=== PATIENT | male | born 1960 | race Caucasian/White ===

== ENCOUNTER 2021-08-16 12:29 | Observation (INO) | payer MEDICARE, MEDICAID, SELFPAY ==
--- NOTE | ~2021-08-16 | CT_ITS ---
EXAMINATION: CT abdomen pelvis wo con DATE: 08/16/2021 15:21 INDICATION: Abdominal pain TECHNIQUE: Computed tomography (CT) of the abdomen and pelvis was performed without intravenous contr ast. The dose-length product (DLP) was 739.09 mGy-cm. Automated exposure control and iterative recons truction technique were employed. COMPARISON: 12/14/2018 FINDINGS: Minimal dependent atelectasis is present in the lung bases. The heart size is normal. Calci fied pulmonary nodules are consistent with old granulomatous disease. Within the limitations of nonco ntrast examination, the liver, pancreas, gallbladder, and adrenal glands are normal. There is a 6 mm nonobstructing stone of the left kidney. There is a staghorn calculus of the right renal pelvis. No s tones are identified in the ureters or bladder. There is no hydronephrosis or hydroureter. There is f luid distention of the stomach. The duodenum is distended to the midportion of the third segment. No pathologically enlarged abdominal or pelvic lymph nodes are identified. There is calcified atheroscle rosis of the aorta and many of the other arteries. The appendix is normal. There is no free intraperi toneal gas. There is moderate lumbar spondylosis. IMPRESSION: 1. Staghorn calculus of the right renal pelvis and nonobstructing stone of the left kidney. 2. Fluid distention of the stomach and duodenum throughout its mid third portion of unclear etiology. Reviewed, dictated and finalized at location F. ICER IMPRESSION: 1. Staghorn calculus of the right renal pelvis and nonobstructing stone of the left kidney. 2. Fluid distention of the stomach and duodenum throughout its mid third portio n of unclear etiology.
--- NOTE | ~2021-08-16 | XR_ITS ---
EXAMINATION: XR abdomen NG/feed tube insert EXAM DATE: 08/16/2021 16:17 INDICATION: NG placement . Dilated bowel loops on CT. TECHNIQUE: Frontal projection(s) of the abdomen for interpretation. Correlation is made to CT earlier same day. FINDINGS: Feeding tube tip overlies the stomach, side-port is at the gastroesophageal junction. This could be safely advanced 5 cm, which I discussed at the time the image was taken, relayed to emergenc y room staff through technologist who had me review image prior to completing. Stomach is distended w ith gas and fluid. Some mildly dilated air-filled loops of bowel in the upper abdomen. There is no or ganomegaly. IMPRESSION: Feeding tube tip in stomach but could be safely advanced 5 cm. Reviewed, dictated and finalized at location A. GRAPH OPERATOR
[2021-08-16 12:35] VITALS: BP 120/82; PULSE 105; RESP 20; TEMP 36.2; O2SAT 98
--- NOTE | 2021-08-16 12:57 | ED.NAVMDI ---
HPI - Nausea/Vomiting/Diarrhea General Chief complaint: Nausea/Vomiting/Diarrhea Stated complaint: emesis Time Seen by Provider: 08/16/21 12:55 Source: patient Mode of arrival: EMS Limitations: no limitations History of Present Illness HPI Narrative: Patient is a 60-year-old male complaining of nausea and vomiting, nonbilious nonbloody started last night. Patient states that he is at approximately 11 episodes of vomiting since last night. Patient denies any chest pain, shortness of breath, abdominal pain, diarrhea, fever or chills. Related Data Allergies Allergy/AdvReac Type Severity Reaction Status Date / Time No Known Allergies Allergy Mild Verified 12/17/20 11:49 Review of Systems Review of Systems: All systems reviewed & are unremarkable except as noted in HPI and below Constitutional: Constitutional: Denies body ache(s), Denies chills, Denies excessive sweating, Denies fatigue, Denies fever(s), Denies headache(s), Denies lethargy, Denies malaise, Denies weakness and Denies weight loss Eyes: Eyes: Denies blurry vision, Denies change in vision and Denies loss of vision ENT: Denies dizziness, Denies ear discharge, Denies headache(s), Denies lip swelling, Denies epistaxis, Denies nasal congestion, Denies neck pain, Denies throat swelling and Denies tongue swelling Cardiovascular: Cardiovascular: Denies chest pain, Denies chest pain at rest, Denies chest pain with activity, Denies diaphoresis, Denies rapid heart rate, Denies edema, Denies irregular heart rhythm, Denies lightheadedness, Denies palpitations, Denies dyspnea and Denies dyspnea on exertion Respiratory: Respiratory: Denies chest congestion, Denies cough, Denies hemoptysis, Denies dyspnea and Denies dyspnea on exertion Gastrointestinal: Gastrointestinal: Denies abdominal pain, Denies melena, Denies hematochezia, Denies diarrhea and Denies hematemesis Musculoskeletal: Musculoskeletal: Denies abnormal gait, Denies deformity, Denies joint swelling, Denies limited range of motion, Denies neck pain and Denies numbness Neurologic: Denies Abnormal speech present, Denies abnormal gait, Denies confusion, Denies dizziness, Denies headache(s), Denies focal weakness, Denies loss of vision, Denies numbness, Denies Other visual disturbances, Denies Sensory deficit (Neuro) and Denies weakness Psychiatric: Psychiatric: Denies confusion, Denies depression, Denies auditory hallucinations, Denies homicidal ideation and Denies suicidal ideation Endocrine: Endocrine: Denies cold intolerance, Denies excessive sweating, Denies fatigue, Denies heat intolerance and Denies palpitations Hematologic/Lymphatic: Hematologic/Lymphatic: Denies easy bleeding and Denies easy bruising Allergic/Immunologic: Allergic/Immunologic: Denies lip swelling, Denies throat swelling and Denies tongue swelling PMFSH Comments Past medical history: Chronic kidney disease, COPD, paraplegia, spinal stenosis Family history: Unknown Social history: Non-smoker no EtOH use lives in a fci Exam Const: General: no acute distress and alert Nutritional Appearance: thin Orientation/consciousness: oriented to person, oriented to place and No confusion Limitations: no limitations Other: Frail, not oriented to time HENMT: Head: normal to inspection, normocephalic and atraumatic Ears: hearing grossly normal bilaterally, TM normal on the right and TM normal on the left General nose exam: Normal external nose present, Normal nares present and No nasal discharge present Face and sinus: normal facial exam Mouth: Yes Normal oral and palatal mucosa present, Yes lip normal, Yes tongue normal and Yes oropharynx normal Throat: posterior oropharynx normal, tonsils normal and uvula midline Eyes: General: appearance normal, both eyes and all related structures Pupils: Equal, round and reactive pupils present EOM: EOMs intact bilaterally Neck: Neck: normal visual inspection, full ROM, no lymphadenopathy and no meningeal signs Ches
[2021-08-16] MEDS: PROMETHAZINE HCL 25 MG/ML AMPUL 12.5 MG IV PUSH (13:08)
[2021-08-16] MEDS: SODIUM CHLORIDE 0.9% IV 1,000 ML 999 ML IV CONT (13:08)
[2021-08-16 13:15] LABS: Basophils Percent Auto 0.2 % (0.2-1.2); Eosinophils Percent Auto 0.1 % (0-4.4); Hematocrit 48.9 % (42.0-52.0); Hemoglobin 14.7 g/dL (14.0-18.0); Immature Granulocyte Absolute 0.04 K/mm3 (0.00-0.031); Immature Granulocyte Percent A 0.4 % (0-0.5); Lymphocytes Absolute Auto 1.25 K/mm3 (0.9-3.2); Lymphocytes Percent Auto 11.4 % (18.3-44.2); Mean Corpuscular HGB Conc 30.1 g/dl (32-36); Mean Corpuscular Volume 96.4 fl (80-100); Monocytes Absolute Auto 0.7 K/mm3 (0.1-0.6); Monocytes Percent Auto 5.9 % (2.6-8.5); Platelet Count Result 315 k/mm3 (150-375); Red Blood Count 5.07 M/mm3 (4.6-6.20)
[2021-08-16 13:33] LABS: Alanine Aminotransferase 15 U/L (4-50); Albumin Level 4.7 g/dL (3.5-5.1); Alkaline Phosphatase 106 U/L (38-126); Anion Gap 10 mmol/L (8-16); Aspartate Amino Transferase 27 U/L (17-59); Bilirubin,Total 0.4 mg/dL (0.2-1.3); Blood Urea Nitrogen 22 mg/dL (9-20); Calcium 10.1 mg/dL (8.4-10.2); Carbon Dioxide 37 mmol/L (22-30); Chloride 97 mmol/L (98-107); Estimated CRCL calculation 69 ml/min; Estimated Glomerular Filt Rate > 60; Glucose 139 mg/dL (65-110); Lipase 54 U/L (23-300); Potassium 3.9 mmol/L (3.4-5.0); Sodium 144 mmol/L (137-145)
[2021-08-16] MEDS: ONDANSETRON INJ 4 MG/2 ML VIAL IV PUSH ×2 (14:19→15:00)
[2021-08-16] MEDS: PANTOPRAZOLE SODIUM IV 40 MG VIAL IV PUSH (15:01)
[2021-08-16 15:04] LABS: Add Urine Microscopic? YES; Appearance Urine Turbid (Clear); Bacteria Urine 1+ /hpf; Bilirubin Urine Negative (Negative); Blood Urine 3+ (Negative); Color Urine Yellow (Yellow); Glucose Urine UA Negative (Negative); Ketones Urine Trace mg/dL (Negative); Leukocyte Esterase Ur 2+ LEU/UL (Negative); Mucus Urine Heavy /lpf; Nitrate Urine Negative (Negative); Protein Urine 3+ mg/dL (Negative); RBC Urine >75 /hpf (0-2); Specific Grav Ur 1.022 (1.001-1.035); Urobilinogen Urine Negative mg/dL (<2.0); WBC Clumps Urine Present /HPF; WBC Urine >75 /hpf
[2021-08-16] MEDS: LORazepam INJ (*CRX) 2 MG/ML VIAL 1 MG IV PUSH (15:51)
[2021-08-16 16:28] VITALS: BP 104/71; PULSE 110; RESP 20; O2SAT 97
--- NOTE | 2021-08-16 16:38 | PC.NURSE ---
NG tube was initially at 60cm. advanced to 65cm per abdomen Xray report.
[2021-08-16] MEDS: LACTATED RINGERS 1,000 ML 125 ML IV CONT (17:25)
--- NOTE | 2021-08-16 17:30 | PM.IMHP ---
H&P: HPI History of Present Illness Date/Time: 08/16/21 17:30 Chief Complaint: Vomiting. Narrative: This is a pleasant 60-year-old male with chronic respiratory failure on home oxygen, COPD, GERD, and paraplegia as a result of cervical myelopathy who presented to the emergency department earlier today via EMS [facility] for evaluation of vomiting. He endorses increasing GERD symptoms, early satiety, and abdominal distension over the last several days and yesterday he began vomiting. He estimates that he has vomited upwards of a dozen times or more in the past 24 hours and he notes that his emesis is dark brown, almost coffee-ground this in nature. CT of the abdomen and pelvis showed fluid distention of the stomach and duodenum throughout its mid 3rd portion of unclear etiology and is noted that he was hospitalized with similar findings in December 2018. It looks as though he has been on metoclopramide since that time. CT also showed a staghorn calculus of the right renal pelvis and a nonobstructing stone in the left kidney. With further questioning he has perhaps mild dysuria. He denies low back and flank pain. No hematuria. No fever, chills, or sweats. Review of Systems Review of Systems: Twelve systems were reviewed. No sick contacts. He denies sinus congestion, rhinorrhea, otalgia, and odynophagia. No chest pain or shortness of breath. He denies cough. He has not been told that his stools are dark. Except as documented, all other systems were reviewed and are negative. [facility] Past Medical History Medical History (Updated 08/16/21 @ 21:53 by Paulette Win PA-C) Benign prostatic hyperplasia Chronic obstructive pulmonary disease Chronic respiratory failure with hypoxia, on home oxygen therapy Gastroesophageal reflux disease Kidney stones Paraplegia Pressure ulcer of sacral region Spinal stenosis Surgical History Surgical History History of cervical spinal surgery (09/2018) Family History Family History (Updated 08/16/21 @ 19:51 by Paulette Win PA-C) Other Diabetes mellitus Heart disease Social History Social History (Updated 08/16/21 @ 19:53 by Paulette Win PA-C) Social History: Resident of [facility]. He is and has 2 daughters. Previously worked as a cook. Smoked 1 to 1.5 packs of cigarettes per day for many years and quit in 2019. No alcohol or illicit substance abuse. He designates his brother, Pramod Del Real, as his surrogate decision maker. Code status: Full code. Meds Home Medications and Allergies Allergies Allergy/AdvReac Type Severity Reaction Status Date / Time No Known Allergies Allergy Mild Verified 12/17/20 11:49 Vital Signs Vital Signs - 24 hr 08/16/21 12:35 08/16/21 16:28 Temperature 97.2 F L Pulse Rate 105 H 110 H Respiratory Rate 20 20 Blood Pressure 120/82 104/71 Pulse Oximetry 98 97 Exam Narrative: General: Chronically ill-appearing male sitting up in bed in no distress. Weight: 65.5 kg. BMI: 21.3. HEENT: PERRL, EOMI. Sclerae anicteric. Tacky mucous membranes. Most teeth are missing. Dry, dark brown emesis on his goatee. NG tube in the left naris is draining opaque dark brown fluid with dark brown/red particulate matter. Neck: Supple. No obvious adenopathy or JVD. Respiratory: Respirations are nonlabored. He is on chronic oxygen. Lung sounds are diminished at the bases but are otherwise clear to auscultation. Cardiovascular: Regular rate and rhythm with S1-S2. Gastrointestinal: Abdomen is soft and slightly distended. He is somewhat tender to deeper palpation epigastric region. No guarding or rebound tenderness. Bowel sounds present. Skin: Warm and dry. Widespread seborrhea, most severe throughout the scalp, ears, and feet. Extremities: No cyanosis or clubbing. Trace pedal and calvin ankle edema bilaterally. Peripheral pulses palpable. Neurolog
--- NOTE | 2021-08-16 21:30 | ADMGEN ---
This patient, Archie Del Real, was admitted to Medical Room 349-01. Patient/family oriented to hospital policies and general routines including ID bracelet, bed and alarms, visiting hours, pain management, procedures, bathroom and other care routines, personal items, smoking policy, room service/diet, and visiting hours. Information on how to activate the Rapid Response Team has been discussed. Patient/Family are encouraged to report perceived risks to care and to ask questions if they do not understand what they are told or what they should do.
[2021-08-16 22:00] VITALS: BP 120/79; PULSE 89; RESP 16; TEMP 36.6; O2SAT 96
[2021-08-16 22:18] VITALS: BMI 22.2
[2021-08-17] VITALS (8 sets, daily range): BP systolic 114–146; BP diastolic 47–99; PULSE 60–97; RESP 16–25; TEMP 36.1–38; O2SAT 95–100; BMI 22.5
[2021-08-17 00:06] LABS: Gastric Negative Control Negative; Gastric Positive Control Positive; Occult Blood Gastric Fluid Negative; pH Gastric Fluid 3 (1-8)
[2021-08-17] MEDS: LACTATED RINGERS 1,000 ML 75 ML IV CONT ×2 (05:21→22:08)
[2021-08-17 05:57] LABS: Basophils Percent Auto 0.2 % (0.2-1.2); Eosinophils Percent Auto 0.2 % (0-4.4); Hematocrit 40.6 % (42.0-52.0); Hemoglobin 12.4 g/dL (14.0-18.0); Immature Granulocyte Absolute 0.05 K/mm3 (0.00-0.031); Immature Granulocyte Percent A 0.5 % (0-0.5); Lymphocytes Absolute Auto 2.18 K/mm3 (0.9-3.2); Lymphocytes Percent Auto 21.2 % (18.3-44.2); Mean Corpuscular HGB Conc 30.5 g/dl (32-36); Mean Corpuscular Hemoglobin 29.7 pg (26-34); Mean Corpuscular Volume 97.1 fl (80-100); Mean Platelet Volume 9.4 fl (7.4-10.4); Monocytes Absolute Auto 1.2 K/mm3 (0.1-0.6); Monocytes Percent Auto 11.5 % (2.6-8.5); Neutrophils Absolute Auto 6.8 K/mm3 (1.3-6.7); Neutrophils Percent Auto 66.4 % (45.5-73.1); Platelet Count Result 252 k/mm3 (150-375); Red Blood Count 4.18 M/mm3 (4.6-6.20); White Blood Count 10.3 K/mm3 (4.5-10.0)
[2021-08-17 06:11] LABS: Anion Gap 6 mmol/L (8-16); Blood Urea Nitrogen 22 mg/dL (9-20); Calcium 9.4 mg/dL (8.4-10.2); Carbon Dioxide 39 mmol/L (22-30); Chloride 99 mmol/L (98-107); Estimated CRCL calculation 73 ml/min; Estimated Glomerular Filt Rate > 60; Glucose 104 mg/dL (65-110); Potassium 3.5 mmol/L (3.4-5.0); Sodium 144 mmol/L (137-145)
--- NOTE | 2021-08-17 07:29 | WPDGICN ---
Assessment and Plan Assessment and plan (1) Coffee ground emesis: Code(s): K92.0 - Hematemesis Status: Acute Assessment and Plan: will proceed with urgent egd, assess if ulcers, esophagitis, etc iv protonix, he is already npo and he has ngt in place (no more bleeding now) (2) Gastric distention: Code(s): K31.89 - Other diseases of stomach and duodenum Status: Acute Assessment and Plan: resolved after ngt egd (3) Dehydration: Code(s): E86.0 - Dehydration Status: Acute Assessment and Plan: iv fluids and supportive care here (4) Kidney stones: Code(s): N20.0 - Calculus of kidney Status: Acute (5) Urinary tract infection: Code(s): N39.0 - Urinary tract infection, site not specified Status: Acute Assessment and Plan: on abx by primary (6) Paraplegia: Code(s): G82.20 - Paraplegia, unspecified Status: Acute GI Consult Note Consult date/time: 08/17/21 07:29 Reason for consult: coffee ground emesis HPI: Archie Del Real is a 60 year old male with chronic respiratory failure on home oxygen, COPD, GERD, and paraplegia as a result of cervical myelopathy complicated by cervical surgery. He was brought to the emergency department via EMS from [facility] for evaluation of new onset of vomiting. He says that has been having increasing GERD with anorexia and abdominal distension over the last several days, also had coffee ground emesis. CT of the abdomen and pelvis reviewed, showed fluid distention of the stomach and duodenum throughout its mid 3rd portion of unclear etiology (similar findings in December 2018 when he was admitted here for similar problem, it was treated medically and did not have egd), also has staghorn calculus of the right renal pelvis and a nonobstructing stone in the left kidney. NGT placed and feeling better, also on antibiotics for possible UTI. Review of Systems Constitutional: Constitutional: Denies chills Eyes: Eyes: Denies blurry vision ENT: Reports Normal hearing present Cardiovascular: Cardiovascular: Denies chest pain Respiratory: Respiratory: Denies dyspnea Gastrointestinal: Gastrointestinal: Reports abdominal pain, Reports nausea and Reports vomiting Genitourinary: Genitourinary: Denies hematuria Musculoskeletal: Musculoskeletal: Reports neck pain Integumentary/Breasts: Skin/Breast: Denies dry skin Neurologic: Comments: chronic weakness, bed ridden Psychiatric: Psychiatric: Denies behavioral changes [facility], [facility] Past Medical History Medical History (Updated 08/17/21 @ 14:06 by Thanh Vázquez MD) Benign prostatic hyperplasia Chronic obstructive pulmonary disease Chronic respiratory failure with hypoxia, on home oxygen therapy Coffee ground emesis Gastroesophageal reflux disease Kidney stones Paraplegia Pressure ulcer of sacral region Spinal stenosis Surgical History Surgical History History of cervical spinal surgery (09/2018) Family History Family History Father Diabetes mellitus Social History Social History Social History: Resident of [facility]. He is and has 2 daughters. Previously worked as a cook. Smoked 1 to 1.5 packs of cigarettes per day for many years and quit in 2018. No alcohol or illicit substance abuse. He designates his brother, Pramod Del Real, as his surrogate decision maker. Code status: Full code. Smoking packs per day: 1.5 Smoking cigarettes per day: 30.0 Years smoked: 20 Smoking pack-years: 30.00 Smoking status: Former smoker Alcohol intake: never Substance use: never Spiritual care concerns: No Meds Home Medications and Allergies Home Medications Medication Instructions Recorded Confirmed Type Acid Reduc
--- NOTE | 2021-08-17 09:22 | WPDANESEPPF ---
Anes - Initial Pre Proc Eval Procedure: Operation Date: 08/17/21 13:00 Proposed Procedures p Esophagogastroduodenoscopy - Thanh Vázquez MD Date/Time: 08/17/21 09:22 Surgeon: Stephen Aldana MD Pre Op Diagnosis: intractable vomiting, abdominal distention Patient Data Age: 60 Gender: M Height: 1.75 m Weight: 69.3 kg Last Vital Signs Temp 36.9 C 08/17/21 05:13 Pulse 75 08/17/21 05:13 Resp 16 08/17/21 05:13 BP 146/99 H 08/17/21 05:13 Pulse Ox 95 08/17/21 05:13 Allergies Allergy/AdvReac Type Severity Reaction Status Date / Time No Known Allergies Allergy Mild Verified 08/17/21 09:23 Home Medications Medication Instructions Recorded Confirmed Type Acid Emergency Medical Service Coordinator (omeprazole) 20 mg PO DAILY 08/16/21 08/16/21 History Acidophilus 1 tablet PO BID 08/16/21 08/16/21 History Colace 100 mg PO BID 08/16/21 08/16/21 History ProAir HFA 2 dose INHALATION Q4-6H PRN 08/16/21 08/16/21 History ascorbic acid (vitamin C) 500 mg PO DAILY 08/16/21 08/16/21 History cholecalciferol (vitamin D3) 1,250 mcg PO WEEKLY 08/16/21 08/16/21 History dextran 70-hypromellose 1 dose EACH EYE QID 08/16/21 08/16/21 History ferrous sulfate 325 mg PO DAILY 08/16/21 08/16/21 History folic acid 1 mg PO DAILY 08/16/21 08/16/21 History gabapentin 300 mg PO TID 08/16/21 08/16/21 History hydrocodone-acetaminophen 1 tablet PO QID PRN 08/16/21 08/16/21 History metoclopramide HCl 5 mg PO QID 08/16/21 08/16/21 History mirtazapine 7.5 mg PO HS 08/16/21 08/16/21 History multivitamin with minerals 1 tablet PO DAILY 08/16/21 08/16/21 History Laboratory Tests 08/16/21 08/16/21 08/16/21 13:05 13:05 14:47 WBC 11.0 K/mm3 H K/mm3 (4.5-10.0) RBC 5.07 M/mm3 M/mm3 (4.6-6.20) Hgb 14.7 g/dL g/dL (14.0-18.0) Hct 48.9 % % (42.0-52.0) MCV 96.4 fl fl (80-100) MCH 29.0 pg pg (26-34) MCHC 30.1 g/dl L g/dl (32-36) RDW 14.0 % % (11.5-14.5) Plt Count 315 k/mm3 k/mm3 (150-375) MPV 9.0 fl fl (7.4-10.4) Immature Gran % (Auto) 0.4 % % (0-0.5) Neut % (Auto) 82.0 % H % (45.5-73.1) Lymph % (Auto) 11.4 % L % (18.3-44.2) [place] % (Auto) 5.9 % % (2.6-8.5) Eos % (Auto) 0.1 % % (0-4.4) Baso % (Auto) 0.2 % % (0.2-1.2) Lymph # (Auto) 1.25 K/mm3 K/mm3 (0.9-3.2) [place] # (Auto) 0.7 K/mm3 H K/mm3 (0.1-0.6) Eos # (Auto) 0.0 K/mm3 K/mm3 (0-0.3) Baso # (Auto) 0.0 K/mm3 K/mm3 (0.0-0.1) Abs Immat Gran (auto) 0.04 K/mm3 H K/mm3 (0.00-0.031) Absolute Neuts (auto) 9.0 K/mm3 H K/mm3 (1.3-6.7) Absolute Nucleated RBC 0.0 K/mm3 K/mm3 (0.0-0.012) Nucleated RBC % 0.0 % % (0.0-0.2) Sodium 144 mmol/L mmol/L (137-145) Potassium 3.9 mmol/L mmol/L (3.4-5.0) Chloride 97 mmol/L L mmol/L (98-107) Carbon Dioxide 37 mmol/L H mmol/L (22-30) Anion Gap 10 mmol/L mmol/L (8-16) BUN 22 mg/dL H mg/dL (9-20) Creatinine 0.90 mg/dL mg/dL (0.7-1.3) Estim Creat Clear Calc 69 ml/min ml/min Estimated GFR > 60 (59 - ) Glucose 139 mg/dL H mg/dL (65-110) Calcium 10.1 mg/dL mg/dL (8.4-10.2) Magnesium Total Bilirubin 0.4 mg/dL mg/dL (0.2-1.3) AST 27 U/L U/L (17-59) ALT 15 U/L U/L (4-50) Alkaline Phosphatase 106 U/L U/L (38-126) Total Protein 9.0 g/dL H g/dL (6.3-8.2) Albumin 4.7 g/dL g/dL (3.5-5.1) Lipase 54 U/L U/L (23-300) Urine Color Yellow (Yellow) Urine Appearance Turbid H (Clear) Urine pH 6.0 (5.0-9.0) Ur Specific [place] 1.022 (1.001-1.035) Urine Protein 3+ mg/dL H mg/dL (Negative) Urine Glucose (UA) Negative mg/dL mg/dL (
[2021-08-17] MEDS: LACTATED RINGERS 1,000 ML 150 ML IV CONT (09:23)
--- NOTE | 2021-08-17 11:04 | PM.IMPN ---
Progress Note: A&P Assessment and Plan (1) Hematemesis: Code(s): K92.0 - Hematemesis Status: Acute Assessment and Plan: CT scan showed fluid-filled stomach d on IV Protonix [address] Vázquez has been consulted EGD was done shows esophagitis and gastritis biopsy was taken (2) Gastric distention: Code(s): K31.89 - Other diseases of stomach and duodenum Status: Acute Assessment and Plan: CT shows fluid distention of the stomach and duodenum throughout its mid 3rd portion of on clear etiology. H patient on metoclopramide probable gastroparesis GI consult Continue Reglan (3) Gastroesophageal reflux disease: Code(s): K21.9 - Gastro-esophageal reflux disease without esophagitis Status: Acute Assessment and Plan: started on IV Protonix 40 mg b.i.d.. (4) Urinary tract infection: Code(s): N39.0 - Urinary tract infection, site not specified Status: Acute Assessment and Plan: Patient has been started on ceftriaxone, pending urine culture. Patient has staghorn stone (5) Kidney stones: Code(s): N20.0 - Calculus of kidney Status: Acute Assessment and Plan: CT shows a staghorn in the right kidney and a nonobstructing stone on the left. Yvonne Newton NP for the urology group who recommends treating the urinary tract infection. The patient needs to make an appointment to follow-up with them in the clinic as an outpatient for further management. (6) Chronic respiratory failure with hypoxia, on home oxygen therapy: Code(s): J96.11 - Chronic respiratory failure with hypoxia; Z99.81 - Dependence on supplemental oxygen Status: Acute Assessment and Plan: He is at his baseline oxygen requirement. (7) Chronic obstructive pulmonary disease: Code(s): J44.9 - Chronic obstructive pulmonary disease, unspecified Status: Acute Assessment and Plan: No acute issues. Continue home medication (8) Dehydration: Code(s): E86.0 - Dehydration Status: Acute Assessment and Plan: Continue judicious IV fluid rehydration. Subjective Date/time seen: 08/17/21 11:04 Interval history: Patient seen and examined Patient presented to the hospital with vomiting dark vomit was found to have hematemesis CT scan was done showed abdominal distension nasogastric tube was placed GI was consulted EGD was done showed reflux esophagitis and gastritis biopsy was taken patient also was found to have UTI and staghorn stone nonobstructive Patient feels weak Patient denies fever headache chest pain shortness of breath I am seeing the patient for UTI Exam Narrative: Alert Chest decreased air entry bilateral Abdomen nontender nondistended CVS S1 + S2 Lower negative extremity edema Objective Data Vital Signs Vital Signs: Vital Signs - 24 hr 08/16/21 12:35 08/16/21 16:28 08/16/21 22:00 Temperature 97.2 F L 97.8 F Pulse Rate 105 H 110 H 89 Respiratory Rate 20 20 16 Blood Pressure 120/82 104/71 120/79 Pulse Oximetry 98 97 96 08/17/21 05:13 08/17/21 09:00 08/17/21 09:24 Temperature 98.4 F 97.4 F L Pulse Rate 75 75 Respiratory Rate 16 18 Blood Pressure 146/99 H 133/71 Pulse Oximetry 95 100 100 08/17/21 09:46 08/17/21 09:56 08/17/21 10:06 Temperature Pulse Rate 97 76 65 Respiratory Rate 25 H 20 23 H Blood Pressure 114/76 120/68 127/69 Pulse Oximetry 96 96 96 Intake/Output Intake/Output: Intake & Output 08/14/21 08/15/21 08/16/21 08/17/21 23:59 23:59 23:59 23:59 Intake Total 1050 1250 Output Total 300 520 Balance 750 730 Meds/Results Medications: Active Medications Generic Name Dose Route Start Last Admin Trade Name Freq PRN Reason Stop Dose Admin Hydrocodone Bitart/Acetaminophen 1 tab 08/17/21 11:02 Hydrocodone/Acetaminophen (*Crx) 5-325 Mg Tablet PO QID PRN Pain Folic Acid 1 mg 08/18/21 09:00 Folic Acid
[2021-08-17] MEDS: SUCRALFATE SUSP 100 MG/ML 10 ML UDC 1000 MG PO ×3 (11:50→22:09)
[2021-08-17] MEDS: PANTOPRAZOLE SODIUM IV 40 MG VIAL IV PUSH ×2 (11:50→22:07)
[2021-08-17 12:04] LABS: Basophils Percent Auto 0.4 % (0.2-1.2); Eosinophils Absolute Auto 0.1 K/mm3 (0-0.3); Eosinophils Percent Auto 0.5 % (0-4.4); Hematocrit 38.6 % (42.0-52.0); Hemoglobin 11.9 g/dL (14.0-18.0); Immature Granulocyte Absolute 0.04 K/mm3 (0.00-0.031); Immature Granulocyte Percent A 0.4 % (0-0.5); Lymphocytes Percent Auto 22.2 % (18.3-44.2); Mean Corpuscular HGB Conc 30.8 g/dl (32-36); Mean Corpuscular Hemoglobin 29.3 pg (26-34); Mean Corpuscular Volume 95.1 fl (80-100); Mean Platelet Volume 9.1 fl (7.4-10.4); Monocytes Absolute Auto 1.1 K/mm3 (0.1-0.6); Monocytes Percent Auto 11.3 % (2.6-8.5); Neutrophils Absolute Auto 6.5 K/mm3 (1.3-6.7); Neutrophils Percent Auto 65.2 % (45.5-73.1); Platelet Count Result 252 k/mm3 (150-375); Red Blood Count 4.06 M/mm3 (4.6-6.20); White Blood Count 9.9 K/mm3 (4.5-10.0)
[2021-08-17 12:17] LABS: Alanine Aminotransferase 11 U/L (4-50); Albumin Level 3.8 g/dL (3.5-5.1); Alkaline Phosphatase 82 U/L (38-126); Anion Gap 6 mmol/L (8-16); Aspartate Amino Transferase 22 U/L (17-59); Bilirubin,Total 0.4 mg/dL (0.2-1.3); Blood Urea Nitrogen 22 mg/dL (9-20); Calcium 9.2 mg/dL (8.4-10.2); Carbon Dioxide 36 mmol/L (22-30); Chloride 99 mmol/L (98-107); Estimated CRCL calculation 66 ml/min; Estimated Glomerular Filt Rate > 60; Glucose 100 mg/dL (65-110); Potassium 3.6 mmol/L (3.4-5.0); Sodium 141 mmol/L (137-145)
[2021-08-17] MEDS: GABAPENTIN 300 MG CAPSULE PO ×2 (13:04→18:20)
[2021-08-17] MEDS: ASCORBIC ACID 500 MG TABLET PO (13:04)
[2021-08-17] MEDS: METOCLOPRAMIDE HCL 5 MG TABLET PO ×3 (13:04→22:08)
[2021-08-17] MEDS: FOLIC ACID 1 MG TABLET PO (13:04)
[2021-08-17] MEDS: PANTOPRAZOLE 40 MG TABLET PO (13:04)
[2021-08-17] MEDS: DOCUSATE SODIUM 100 MG CAPSULE PO (18:19)
[2021-08-17] MEDS: ACIDOPHILUS/BULGARICUS CHEWABLE TABLET 1 TABLET PO (18:19)
[2021-08-17] MEDS: MIRTAZAPINE 7.5 MG TABLET PO (22:08)
[2021-08-18] MEDS: SUCRALFATE SUSP 100 MG/ML 10 ML UDC 1000 MG PO ×4 (06:17→20:50)
[2021-08-18 06:20] VITALS: BP 122/48; PULSE 59; RESP 18; TEMP 36.6; O2SAT 100
[2021-08-18 06:37] LABS: Basophils Percent Auto 0.7 % (0.2-1.2); Eosinophils Absolute Auto 0.2 K/mm3 (0-0.3); Eosinophils Percent Auto 2.6 % (0-4.4); Hematocrit 33.2 % (42.0-52.0); Hemoglobin 10.2 g/dL (14.0-18.0); Immature Granulocyte Absolute 0.02 K/mm3 (0.00-0.031); Immature Granulocyte Percent A 0.3 % (0-0.5); Lymphocytes Absolute Auto 2.39 K/mm3 (0.9-3.2); Lymphocytes Percent Auto 39.2 % (18.3-44.2); Mean Corpuscular HGB Conc 30.7 g/dl (32-36); Mean Corpuscular Hemoglobin 29.7 pg (26-34); Mean Corpuscular Volume 96.5 fl (80-100); Mean Platelet Volume 9.3 fl (7.4-10.4); Monocytes Absolute Auto 0.8 K/mm3 (0.1-0.6); Monocytes Percent Auto 12.3 % (2.6-8.5); Neutrophils Absolute Auto 2.7 K/mm3 (1.3-6.7); Neutrophils Percent Auto 44.9 % (45.5-73.1); Platelet Count Result 178 k/mm3 (150-375); Red Blood Count 3.44 M/mm3 (4.6-6.20); Red Cell Distribution Width 13.8 % (11.5-14.5); White Blood Count 6.1 K/mm3 (4.5-10.0)
[2021-08-18 07:00] LABS: Alanine Aminotransferase 9 U/L (4-50); Albumin Level 3.1 g/dL (3.5-5.1); Alkaline Phosphatase 57 U/L (38-126); Anion Gap 5 mmol/L (8-16); Aspartate Amino Transferase 19 U/L (17-59); Bilirubin,Total 0.3 mg/dL (0.2-1.3); Blood Urea Nitrogen 17 mg/dL (9-20); Calcium 8.5 mg/dL (8.4-10.2); Carbon Dioxide 35 mmol/L (22-30); Chloride 97 mmol/L (98-107); Estimated CRCL calculation 82 ml/min; Estimated Glomerular Filt Rate > 60; Glucose 86 mg/dL (65-110); Potassium 3.2 mmol/L (3.4-5.0); Sodium 137 mmol/L (137-145)
--- NOTE | 2021-08-18 07:13 | WPDANESPN ---
Anes - Prog Note Post-Op Date/Time: 08/18/21 07:13 Cardiovascular status: normal Respiratory status: normal Airway patency: baseline Mental status: baseline Post-Op hydration status: normal Vital Signs: Last Vital Signs Temp 97.8 F 08/18/21 06:20 Pulse 59 L 08/18/21 06:20 Resp 18 08/18/21 06:20 BP 122/48 L 08/18/21 06:20 Pulse Ox 100 08/18/21 06:20 Pain Score (VAS): 08/16 I/O: Intake & Output 08/17/21 08/17/21 08/18/21 15:59 23:59 07:59 Intake Total 490 1720 150 Balance 490 1720 150 Laboratory Tests 08/18/21 05:55 08/18/21 05:55 08/17/21 08/17/21 08/18/21 11:41 11:41 05:55 WBC 9.9 6.1 RBC 4.06 L 3.44 L Hgb 11.9 L 10.2 L Hct 38.6 L 33.2 L MCV 95.1 96.5 MCH 29.3 29.7 MCHC 30.8 L 30.7 L RDW 14.0 13.8 Plt Count 252 178 MPV 9.1 9.3 Immature Gran % (Auto) 0.4 0.3 Neut % (Auto) 65.2 44.9 L Lymph % (Auto) 22.2 39.2 [place] % (Auto) 11.3 H 12.3 H Eos % (Auto) 0.5 2.6 Baso % (Auto) 0.4 0.7 Lymph # (Auto) 2.20 2.39 [place] # (Auto) 1.1 H 0.8 H Eos # (Auto) 0.1 0.2 Baso # (Auto) 0.0 0.0 Abs Immat Gran (auto) 0.04 H 0.02 Absolute Neuts (auto) 6.5 2.7 Absolute Nucleated RBC 0.0 0.0 Nucleated RBC % 0.0 0.0 Sodium 141 Potassium 3.6 Chloride 99 Carbon Dioxide 36 H Anion Gap 6 L BUN 22 H Creatinine 1.00 Estim Creat Clear Calc 66 Estimated GFR > 60 Glucose 100 Calcium 9.2 Total Bilirubin 0.4 AST 22 ALT 11 Alkaline Phosphatase 82 Total Protein 7.0 Albumin 3.8 08/18/21 05:55 WBC RBC Hgb Hct MCV MCH MCHC RDW Plt Count MPV Immature Gran % (Auto) Neut % (Auto) Lymph % (Auto) [place] % (Auto) Eos % (Auto) Baso % (Auto) Lymph # (Auto) [place] # (Auto) Eos # (Auto) Baso # (Auto) Abs Immat Gran (auto) Absolute Neuts (auto) Absolute Nucleated RBC Nucleated RBC % Sodium 137 Potassium 3.2 L Chloride 97 L Carbon Dioxide 35 H Anion Gap 5 L BUN 17 Creatinine 0.80 Estim Creat Clear Calc 82 Estimated GFR > 60 Glucose 86 Calcium 8.5 Total Bilirubin 0.3 AST 19 ALT 9 Alkaline Phosphatase 57 Total Protein 6.0 L Albumin 3.1 L Microbiology 08/16/21 14:47 Urine Clean Catch Urine Culture - Preliminary Escherichia Coli Post-procedural complaints: none Patient Feedback: Patient satisfied with anesthetic care.
[2021-08-18 08:00] VITALS: O2SAT 100
[2021-08-18] MEDS: FOLIC ACID 1 MG TABLET PO (08:25)
[2021-08-18] MEDS: DOCUSATE SODIUM 100 MG CAPSULE PO ×2 (08:25→17:01)
[2021-08-18] MEDS: PANTOPRAZOLE 40 MG TABLET PO (08:25)
[2021-08-18] MEDS: ASCORBIC ACID 500 MG TABLET PO (08:25)
[2021-08-18] MEDS: PANTOPRAZOLE SODIUM IV 40 MG VIAL IV PUSH (08:25)
[2021-08-18] MEDS: THERAPEUTIC MULTIVITAMINS/MINERALS TAB (*BKC) 1 TABLET PO (08:25)
[2021-08-18] MEDS: METOCLOPRAMIDE HCL 5 MG TABLET PO ×4 (08:26→20:50)
[2021-08-18] MEDS: ARTIFICIAL TEARS OPHTH SOLN 15 ML BOTTLE 1 DROP EACH EYE (08:26)
[2021-08-18] MEDS: ACIDOPHILUS/BULGARICUS CHEWABLE TABLET 1 TABLET PO ×2 (08:26→17:01)
[2021-08-18] MEDS: GABAPENTIN 300 MG CAPSULE PO ×3 (08:26→17:01)
[2021-08-18] MEDS: LACTATED RINGERS 1,000 ML 75 ML IV CONT ×2 (08:31→21:02)
--- NOTE | 2021-08-18 10:06 | PM.IMPN ---
Progress Note: A&P Assessment and Plan (1) Hematemesis: Code(s): K92.0 - Hematemesis Status: Acute Assessment and Plan: CT scan showed fluid-filled stomach status post IV Protonix [address] Vázquez has been consulted EGD was done shows esophagitis and gastritis biopsy was taken Advance diet as tolerated per GI (2) Gastric distention: Code(s): K31.89 - Other diseases of stomach and duodenum Status: Acute Assessment and Plan: CT shows fluid distention of the stomach and duodenum throughout its mid 3rd portion of on clear etiology. H patient on metoclopramide probable gastroparesis GI consult Continue Reglan (3) Gastroesophageal reflux disease: Code(s): K21.9 - Gastro-esophageal reflux disease without esophagitis Status: Acute Assessment and Plan: Protonix 40 mg b.i.d.. (4) Urinary tract infection: Code(s): N39.0 - Urinary tract infection, site not specified Status: Acute Assessment and Plan: Patient has been started on ceftriaxone, secondary to E coli sensitive to Rocephin. Patient has staghorn stone (5) Kidney stones: Code(s): N20.0 - Calculus of kidney Status: Acute Assessment and Plan: CT shows a staghorn in the right kidney and a nonobstructing stone on the left. Yvonne Newton NP for the urology group who recommends treating the urinary tract infection. The patient needs to make an appointment to follow-up with them in the clinic as an outpatient for further management. (6) Chronic respiratory failure with hypoxia, on home oxygen therapy: Code(s): J96.11 - Chronic respiratory failure with hypoxia; Z99.81 - Dependence on supplemental oxygen Status: Acute Assessment and Plan: He is at his baseline oxygen requirement. Elevated bicarb ABG on 08/18/2021 (7) Chronic obstructive pulmonary disease: Code(s): J44.9 - Chronic obstructive pulmonary disease, unspecified Status: Acute Assessment and Plan: No acute issues. Continue home medication (8) Dehydration: Code(s): E86.0 - Dehydration Status: Acute Assessment and Plan: Continue judicious IV fluid rehydration. Subjective Date/time seen: 08/18/21 10:06 Interval history: Patient seen and examined Patient presented to the hospital with vomiting dark vomit was found to have hematemesis CT scan was done showed abdominal distension nasogastric tube was placed GI was consulted EGD was done showed reflux esophagitis and gastritis biopsy was taken patient also was found to have UTI and staghorn stone nonobstructive urine culture was positive for E coli sensitive to Rocephin Patient feels better today started on a liquid diet anticipate advance diet today to home diet if okay with GI Patient denies fever headache chest pain shortness of breath I am seeing the patient for UTI Exam Narrative: Alert Chest decreased air entry bilateral Abdomen nontender nondistended CVS S1 + S2 Lower negative extremity edema Objective Data Vital Signs Vital Signs: Vital Signs - 24 hr 08/17/21 14:25 08/17/21 22:00 08/18/21 06:20 Temperature 100.4 F H 97 F L 97.8 F Pulse Rate 65 60 59 L Respiratory Rate 21 H 17 18 Blood Pressure 123/59 L 133/47 L 122/48 L Pulse Oximetry 98 98 100 08/18/21 08:00 Temperature Pulse Rate Respiratory Rate Blood Pressure Pulse Oximetry 100 Intake/Output Intake/Output: Intake & Output 08/15/21 08/16/21 08/17/21 08/18/21 23:59 23:59 23:59 23:59 Intake Total 1050 3210 1390 Output Total 300 520 Balance 750 2690 1390 Meds/Results Medications: Active Medications Generic Name Dose Route Start Last Admin Trade Name Freq PRN Reason Stop Dose Admin Acetaminophen 650 mg 08/17/21 14:24 Acetaminophen 325 Mg Tablet PO Q4H PRN Mild Pain (1-3) or Fever Hydrocodone Bitart/Acetaminophen 1 tab 08/17/21 11:02 Hydrocodone/Acetam
[2021-08-18 10:46] LABS: Alveolar/Arterial O2 Gradient 28.1 mmHg; Base Excess ABG 10.3 mEq/l (+/-2.0); Device NASAL CANNULA; Fractional Inspired Oxygen 28 %; HCO3 ABG 36.6 mEq/l (22.0-26.0); Modified Allen's Test Pass; Oxygen Content ABG 15.8 %vol (16.0-22.0); Oxygen Saturation ABG 97.7 % (95.0-100.0); Oxyhemoglobin 96.6 % THb (90.0-100.0); PCO2 ABG 57.7 mmHg (35.0-45.0); PO2 ABG 103.5 mmHg (80.0-100.0); Site Drawn RIGHT RADIAL; Total Hemoglobin 11.5 g/dL (12.0-18.0)
[2021-08-18 12:11] LABS: Hematocrit 35.2 % (42.0-52.0); Hemoglobin 10.7 g/dL (14.0-18.0)
[2021-08-18] MEDS: POTASSIUM CHLORIDE 20 MEQ TABLET 40 MEQ PO ×2 (12:14→17:01)
[2021-08-18] MEDS: HYDROcodone/acetaminophen (*CRX) 5-325 MG TABLET 1 TAB PO ×2 (12:16→18:35)
--- NOTE | 2021-08-18 12:45 | WPDGIPROGNO ---
Progress Note: A&P Assessment and Plan (1) Coffee ground emesis: Code(s): K92.0 - Hematemesis Status: Acute Assessment and Plan: resolved (2) Esophagitis: Code(s): K20.90 - Esophagitis, unspecified without bleeding Status: Acute Assessment and Plan: he has been tolerating diet, ok to advance to soft and no objections to discharge will prescribe ppi daily and carafate with meals (3) Dehydration: Code(s): E86.0 - Dehydration Status: Acute Assessment and Plan: resolved (4) Kidney stones: Code(s): N20.0 - Calculus of kidney Status: Acute (5) Paraplegia: Code(s): G82.20 - Paraplegia, unspecified Status: Acute Subjective Date/time seen: 08/18/21 12:45 Interval history: doing better, no more n/v or pain. Review of Systems Review of Systems: All systems reviewed & are unremarkable except as noted in HPI and below Exam Const: General: comfortable, no acute distress and ill appearing chronically HENMT: General nose exam: Normal nares present Other: NGT in place Eyes: General: appearance normal, both eyes and all related structures Neck: Neck: no JVD Resp: Auscultation: clear to auscultation bilaterally Cardio: Rate: regular rate Rhythm: regular rhythm GI: Inspection: non-distended GI Palp: Yes Soft to palpation and No Guarding due to palpation present (GI) Auscultation: normal bowel sounds Skin: General skin exam: normal color Neuro: Speech: normal speech Other: Patient has minimal movement in his lower extremities and left upper extremity. He is able to move his right arm Extrem: General: normal to inspection Psych: Mental Status: mental status grossly normal Objective Data Vital Signs Vital Signs: Vital Signs - 24 hr 08/17/21 14:25 08/17/21 22:00 08/18/21 06:20 Temperature 100.4 F H 97 F L 97.8 F Pulse Rate 65 60 59 L Respiratory Rate 21 H 17 18 Blood Pressure 123/59 L 133/47 L 122/48 L Pulse Oximetry 98 98 100 08/18/21 08:00 Temperature Pulse Rate Respiratory Rate Blood Pressure Pulse Oximetry 100 Intake/Output Intake/Output: Intake & Output 08/15/21 08/16/21 08/17/21 08/18/21 23:59 23:59 23:59 23:59 Intake Total 1050 3210 1630 Output Total 300 520 Balance 750 2690 1630 Meds/Results Medications: Active Medications Generic Name Dose Route Start Last Admin Trade Name Freq PRN Reason Stop Dose Admin Acetaminophen 650 mg 08/17/21 14:24 Acetaminophen 325 Mg Tablet PO Q4H PRN Mild Pain (1-3) or Fever Hydrocodone Bitart/Acetaminophen 1 tab 08/17/21 11:02 08/18/21 12:16 Hydrocodone/Acetaminophen (*Crx) 5-325 Mg Tablet PO 1 tab QID PRN Administration Pain Albuterol 2 puff 08/17/21 11:02 Albuterol Sulfate (*Sp) Aerosol 1 Puff INHALATION Q4-6H PRN Shortness Of Breath Artificial Tears 1 drop 08/17/21 21:00 08/18/21 12:14 Artificial Tears Ophth Soln 15 Ml Bottle EACH EYE 09/16/21 20:59 Not Given QID WILLIAM Ascorbic Acid 500 mg 08/17/21 12:00 08/18/21 08:25 Ascorbic Acid 500 Mg Tablet PO 09/17/21 11:59 500 mg DAILY WILLIAM Administration Docusate Sodium 100 mg 08/17/21 17:00 08/18/21 08:25 Docusate Sodium 100 Mg Capsule PO 09/16/21 16:59 100 mg BID WILLIAM Administration Ergocalciferol 50,000 unit 08/23/21 09:00 Ergocalciferol 50,000 Unit Capsule PO Mo@0900 WILLIAM Folic Acid 1 mg 08/17/21 12:00 08/18/21 08:25 Folic Acid 1 Mg Tablet PO 1 mg DAILY WILLIAM Administration Gabapentin 300 mg 08/17/21 13:00 08/18/21 12:14 Gabapentin 300 Mg Capsule PO 300 mg TID WILLIAM Administration Lactated Ringer's 1,000 mls @ 75 mls/hr 08/16/21 16:15 08/18/21 08:31 Lr - Lactated Ringers Iv IV CONT 75 mls/hr .[id number] WILLIAM Administration Ceftriaxone Sodium/Dextrose 1 gm in 50 mls @ 100 mls/hr 08/16/21 22:00 08/17/21 22:09 Rocephin 1 Gm/D5w 50 Ml IVPB 100 mls/hr Q24H WILLIAM Administrat
[2021-08-18 14:00] VITALS: BP 125/93; PULSE 60; RESP 18; TEMP 36.8; O2SAT 100
[2021-08-18 20:00] VITALS: O2SAT 100
[2021-08-18] MEDS: MIRTAZAPINE 7.5 MG TABLET PO (20:50)
[2021-08-18 20:53] VITALS: BP 111/76; PULSE 100; RESP 18; TEMP 36.1; O2SAT 98
[2021-08-19] MEDS: SUCRALFATE SUSP 100 MG/ML 10 ML UDC 1000 MG PO ×2 (05:40→12:03)
[2021-08-19 06:30] LABS: Basophils Percent Auto 0.6 % (0.2-1.2); Eosinophils Absolute Auto 0.2 K/mm3 (0-0.3); Eosinophils Percent Auto 3.4 % (0-4.4); Hematocrit 36.2 % (42.0-52.0); Hemoglobin 10.8 g/dL (14.0-18.0); Immature Granulocyte Absolute 0.02 K/mm3 (0.00-0.031); Immature Granulocyte Percent A 0.3 % (0-0.5); Lymphocytes Absolute Auto 2.38 K/mm3 (0.9-3.2); Lymphocytes Percent Auto 34.7 % (18.3-44.2); Mean Corpuscular HGB Conc 29.8 g/dl (32-36); Mean Corpuscular Hemoglobin 29.5 pg (26-34); Mean Corpuscular Volume 98.9 fl (80-100); Mean Platelet Volume 9.4 fl (7.4-10.4); Monocytes Absolute Auto 0.9 K/mm3 (0.1-0.6); Monocytes Percent Auto 12.7 % (2.6-8.5); Neutrophils Absolute Auto 3.3 K/mm3 (1.3-6.7); Neutrophils Percent Auto 48.3 % (45.5-73.1); Platelet Count Result 193 k/mm3 (150-375); Red Blood Count 3.66 M/mm3 (4.6-6.20); Red Cell Distribution Width 13.5 % (11.5-14.5); White Blood Count 6.9 K/mm3 (4.5-10.0)
[2021-08-19 06:51] LABS: Alanine Aminotransferase 10 U/L (4-50); Albumin Level 3.3 g/dL (3.5-5.1); Alkaline Phosphatase 52 U/L (38-126); Anion Gap 5 mmol/L (8-16); Aspartate Amino Transferase 27 U/L (17-59); Bilirubin,Total 0.3 mg/dL (0.2-1.3); Blood Urea Nitrogen 12 mg/dL (9-20); Calcium 8.7 mg/dL (8.4-10.2); Carbon Dioxide 36 mmol/L (22-30); Chloride 99 mmol/L (98-107); Estimated CRCL calculation 93 ml/min; Estimated Glomerular Filt Rate > 60; Glucose 93 mg/dL (65-110); Potassium 3.9 mmol/L (3.4-5.0); Sodium 140 mmol/L (137-145)
[2021-08-19 08:47] VITALS: BP 105/56; PULSE 79; RESP 16; TEMP 36.4; O2SAT 98
[2021-08-19] MEDS: GABAPENTIN 300 MG CAPSULE PO (09:11)
[2021-08-19] MEDS: DOCUSATE SODIUM 100 MG CAPSULE PO (09:11)
[2021-08-19] MEDS: THERAPEUTIC MULTIVITAMINS/MINERALS TAB (*BKC) 1 TABLET PO (09:11)
[2021-08-19] MEDS: ACIDOPHILUS/BULGARICUS CHEWABLE TABLET 1 TABLET PO (09:11)
[2021-08-19] MEDS: METOCLOPRAMIDE HCL 5 MG TABLET PO (09:11)
[2021-08-19] MEDS: PANTOPRAZOLE 40 MG TABLET PO (09:12)
[2021-08-19] MEDS: ASCORBIC ACID 500 MG TABLET PO (09:12)
[2021-08-19] MEDS: FOLIC ACID 1 MG TABLET PO (09:12)
--- NOTE | 2021-08-19 10:06 | PM.DS ---
DS: Admitting Diagnosis Discharge Date 08/19/2021 Admitting Diagnosis Nausea vomiting DS: Discharge Diagnosis Discharge Diagnosis (1) Hematemesis: Code(s): K92.0 - Hematemesis Status: Acute Assessment and Plan: CT scan showed fluid-filled stomach status post IV Protonix [address] Vázquez has been consulted EGD was done shows esophagitis and gastritis biopsy was taken follow-up biopsy results Advance diet as tolerated to home diet per GI Patient will be discharged on Carafate and Protonix Follow-up with GI in 10 days Carafate was given for 15 days may need refills pending GI eval as outpatient (2) Gastric distention: Code(s): K31.89 - Other diseases of stomach and duodenum Status: Acute Assessment and Plan: CT shows fluid distention of the stomach and duodenum throughout its mid 3rd portion of on clear etiology. H patient on metoclopramide probable gastroparesis Consult regarding Reglan concern for long-term neurological complication PCP to address as outpatient Resolved (3) Gastroesophageal reflux disease: Code(s): K21.9 - Gastro-esophageal reflux disease without esophagitis Status: Acute Assessment and Plan: Protonix 40 mg daily (4) Urinary tract infection: Code(s): N39.0 - Urinary tract infection, site not specified Status: Acute Assessment and Plan: Patient has been started on ceftriaxone, secondary to E coli sensitive to Rocephin. Patient has staghorn stone patient will be discharged on oral antibiotic follow-up with urology as outpatient to be established by PCP (5) Kidney stones: Code(s): N20.0 - Calculus of kidney Status: Acute Assessment and Plan: CT shows a staghorn in the right kidney and a nonobstructing stone on the left. Yvonne Newton, FRANCINE for the urology group who recommends treating the urinary tract infection. The patient needs to make an appointment to follow-up with them in the clinic as an outpatient for further management. (6) Chronic respiratory failure with hypoxia, on home oxygen therapy: Code(s): J96.11 - Chronic respiratory failure with hypoxia; Z99.81 - Dependence on supplemental oxygen Status: Acute Assessment and Plan: He is at his baseline oxygen requirement. Elevated bicarb ABG on 08/18/2021 (7) Chronic obstructive pulmonary disease: Code(s): J44.9 - Chronic obstructive pulmonary disease, unspecified Status: Acute Assessment and Plan: No acute issues. Continue home medication (8) Dehydration: Code(s): E86.0 - Dehydration Status: Acute Assessment and Plan: Resolved encourage oral hydration DS: Summary Hospital Course Hospital Course: Patient was admitted to the hospital with nausea vomiting was found to have gastric distension EGD was done showed erosive gastritis biopsy was taken patient was treated with IV Protonix nasogastric tube during hospitalization his condition improved nasogastric tube was removed patient will be discharged on Carafate and Protonix follow-up with GI in 10 days Patient also was found to have UTI and staghorn stone follow-up with Urology as outpatient patient will be discharged on oral antibiotics Time Spent with Patient Time attestation: Total time spent providing and/or coordinating discharge services: Exam Narrative: Alert Chest decreased air entry bilateral Abdomen nontender nondistended CVS S1 + S2 Lower negative extremity edema DS: Data Data Completed and Pending Completed studies during hospitalization: Pending at discharge 08/17/21 09:44 Surgical [PTH] Routine Labs on day of discharge: Labs from last 24 hours 08/19/21 08/19/21 08/18/21 06:03 06:03 11:48 WBC 6.9 RBC 3.66 L Hgb 10.8 L 10.7 L Hct 36.2 L 35.2 L MCV 98.9 MCH 29.5 MCHC 29.8 L RDW 13.5 Plt Count 193 MPV 9.4 Immature Gran % (Auto) 0.3 Neut % (
[2021-08-19 10:29] LABS: Hematocrit 35.5 % (42.0-52.0); Hemoglobin 10.7 g/dL (14.0-18.0)
[2021-08-19 11:55] LABS: EDCOVIDSCREEN Negative (Negative)
== END 2021-08-19 13:54 ==
LOC: ANHED 15:46 → ANH3MED 22:17 → ANH3MEDSUR 08-20 10:00
PROVIDERS: Internal Medicine Gastroenterology; Physician Assistant; Admitting Provider Family Medicine; Emergency Provider Emergency Medicine; Visit Provider Internal Medicine
PROC: 0DJ08ZZ Inspection of Upper Intestinal Tract, Via Natural or Artificial Opening Endoscopic (ICD-10-PCS; CPT 43235; principal; 2021-08-17 13:00)
DX: K92.0 Hematemesis (principal); K29.60 Other gastritis without bleeding; K31.89 Other diseases of stomach and duodenum; K21.9 Gastro-esophageal reflux disease without esophagitis; N39.0 Urinary tract infection, site not specified; B96.20 Unspecified Escherichia coli [E. coli] as the cause of diseases classified elsewhere; N20.0 Calculus of kidney; G82.20 Paraplegia, unspecified; J96.11 Chronic respiratory failure with hypoxia; J44.9 Chronic obstructive pulmonary disease, unspecified; E86.0 Dehydration; Z99.81 Dependence on supplemental oxygen; Z87.891 Personal history of nicotine dependence; Z20.822 Contact with and (suspected) exposure to COVID-19
CPT/HCPCS: 43239; 36415; 36600; 51701; 74176; 80048; 80053; 81001; 82271; 82805; 83690; 83735; 83986; 85014; 85018; 85025; 87077; 87086; 87186; 87426; 88305; 96361; 96365; 96375; 96376; 99285; A9270; C9113; C9803; G0378; J0696; J2060; J2405; J2550; J2704; J7030; J7120